=== PATIENT | male | born 1940 | race Caucasian/White ===

== ENCOUNTER 2019-10-05 18:17 | Inpatient (IN) | payer MEDICARE, OTHER ==
[2019-10-05] MEDS ORDERED: Sodium Chloride 0.9% 1000 ML 1,000 ML IV STA (18:46)
[2019-10-05 19:16] LABS: Absolute Neutrophil Ct (ANC) 4.38 (1.4-6.9); BASOPHIL % 0.4 % (0.0-0.4); Basophil (Absolute #) 0.03 (0-0.4); Eosinophil % 6.8 % (0.00-5.0); Eosinophil (Absolute #) 0.54 (0-0.5); Hematocrit 39.3 % (42-50); Hemoglobin 12.9 gm/dl (12.5-18.0); Lymphocyte (Absolute #) 2.29 (1.0-4.6); Mean Cell Volume 97.3 fl (78-100); Mean Corpuscular Hemoglobin 31.9 pg (26-32); Mean Corpuscular Hgb Concent. 32.8 g/dl (32-36); Mean Platelet Volume 10.4 fl (7.5-11.0); Monocyte (Absolute #) 0.67 (0.0-1.3); Monocytes % 8.5 % (0.0-12.0); Neutrophil % 55.3 % (36.0-66.0); Platelet Count 178 K/mm3 (150-450); Red Blood Count 4.04 M/mm3 (4.1-5.6); Red Cell Distribution Width 13.7 % (11.5-14.0); White Blood Count 7.9 K/mm3 (4.0-10.5)
[2019-10-05] MEDS ORDERED: Sodium Chloride 0.9% 1000 ML 1,000 ML ONE (19:43)
[2019-10-05 19:45] LABS: ALBUMIN 4.4 g/dL (3.5-5.0); ANION GAP 13.6 MEQ/L (5-15); BILIRUBIN,TOTAL 0.6 mg/dL (0.2-1.3); Calcium 8.8 mg/dL (8.4-10.2); Creatinine 1 1.27 mg/dL (0.66-1.25); MAGNESIUM 2.2 mg/dL (1.6-2.3); Potassium 3.5 mmol/L (3.5-5.1); Total Protein 7.4 g/dL (6.3-8.2)
[2019-10-05 19:50] LABS: Erythrocyte Sedimentation Rate 11 mm/hr (0-15)
[2019-10-05 20:42] LABS: Appearance CLEAR (CLEAR); Bilirubin NEGATIVE (NEGATIVE); Blood NEGATIVE Ery/ul (0-5); Glucose NEGATIVE (NEGATIVE); Ketones NEGATIVE (NEGATIVE); Leukocyte Esterase NEGATIVE (NEGATIVE); Mucus SLIGHT /HPF (NEGATIVE); Nitrite NEGATIVE (NEGATIVE); Protein,Urine Dip NEGATIVE (Negative); RBC 0-2 /HPF (0-2); Specific Gravity 1.012 (1.005-1.025); Urobilinogen NEGATIVE mg/dL (0-1); WBC 0-2 /HPF (0-5)
--- NOTE | 2019-10-05 20:52 | ERPHSYRPT ---
- History of Present Illness Time Seen by Provider: 10/05/19 18:35 Source: patient, family Exam Limitations: clinical condition Patient Subjective Stated Complaint: pt here for frequent falls, he has fallen 4 times in last 48 hours,he lives at home with hes Triage Nursing Assessment: pt arrived per wc , alert, but confused to details, pt knows name,birthdate, and place, he has hx of dementia, pt has pain to bothe arms, has bruising to bothe arms, brusiing with swelling to right side of face, bruising to bottom, pt has audible wheezes, resp easy, skin w/d/p Physician History: Is an 79-year-old white male who presents with worsening of his dementia acutely and falling 4 times in the last 48 hours. He was recently at [facility] and worked up for chest pain which was primarily nocturnal and was diagnosed with reflux. They also noticed no increase in the severity of his dimension acutely. He does have some kidney disease chronically recently had some of his Bumex stopped. Been wheezing and had a bad cough. He has had no fever chills or sweats. Occurred: just prior to arrival Reason for Fall: unknown Injuries/Pain Location: head, face, upper extremity, chest Loss of Consciousness: no loss of consciousness Quality: aching Severity of Pain-Max: moderate Severity of Pain-Current: moderate Modifying Factors: Improves With: nothing Associated Symptoms (Fall): chest pain (To palpation), extremity injury ( Redness both shoulders) Hx Tetanus, Diphtheria Vaccination/Date Given: No (unsure) Hx Influenza Vaccination/Date Given: Yes Hx Pneumococcal Vaccination/Date Given: Yes Immunizations Up to Date: Yes Travel Risk - International Travel Have you traveled outside of the country in past 3 weeks: No Have you or anyone close to you been diagnosed with or: No Do your reside in a community with a known COVID-19 case?: Yes If Yes where:: [place] - Coronavirus Screening Has patient experienced Coronavirus symptoms: No - Review of Systems All Other Systems: Unable due to dementia - Past Medical History Pertinent Past Medical History: Yes Cardiac History: Coronary Artery Disease, High Cholesterol, Hypertension Respiratory History: Emphysema - Past Surgical History Past Surgical History: Yes Cardiac: CABG, Cardiac Catheterization, Cardiac Stent Musculoskeletal: Orthopedic Surgery Other Surgical History: hip replaced ,back surg - Social History Smoking Status: Former smoker Exposure to second hand smoke: No Drug Use: none Patient Lives Alone: No - Nursing Vital Signs Nursing Vital Signs: Initial Vital Signs Temperature 97.6 F 10/05/19 18:26 Pulse Rate 57 L 10/05/19 18:26 Respiratory Rate 18 10/05/19 18:26 Blood Pressure 160/92 10/05/19 18:26 O2 Sat by Pulse Oximetry 95 10/05/19 18:26 Pain Scale Pain Intensity 5 - Maria Luisa Coma Score Best Eye Response (Maria Luisa): (4) open spontaneously Best Verbal Response (Maria Luisa): (5) oriented Best Motor Response (Maria Luisa): (6) obeys commands Aroda Total: 15 - Physical Exam General Appearance: mild distress, alert Head Injury: ecchymosis (Ecchymoses and swelling of the right periorbital area) Eye Exam: PERRL/EOMI ENT Exam: airway nml Neck Exam: normal inspection, No tenderness Respiratory/Chest Exam: normal breath sounds, No chest tenderness, No respiratory distress Cardiovascular Exam: normal heart sounds, regular rate/rhythm Gastrointestinal Exam: soft, No tenderness, No distention, No guarding, No ecchymosis Back Exam: normal inspection, No vertebral tenderness Extremity Exam: normal inspection, normal range of motion, pelvis stable, No deformities Neurologic Exam: alert, oriented x 3, cooperative, sensation nml, confusion, No motor deficits Skin Exam: normal color, warm, dry SpO2 Interpretation: normal SpO2: 95 O2 Delivery: Room Air - Course Nursing assessment & vital signs reviewed: Yes EKG Interpreted by Me: RATE (55), Sinus Rhythm, LAFB, Right Bundle Branch Block Rhythm Strip: 1st degree block Ordered Tests: Active Orders 24 hr Category Date Time Status Car Stereo Installer STAT Care 10/05/19 18:48 Active EKG-ER Only STAT Care 10/05/19 18:46 Active IV Insertion STAT Care 10/05/19 18:46 Active CERVICAL SPINE WO CONTRAST [CT] Stat Exams 10/05/19 18:44 Taken CHEST WITHOUT CONTRAST [CT] Stat Exams 10/05/19 18:46 Taken FACIAL BONES WO CONTRAST [CT] Stat Exams 10/05/19 18:44 Taken HEAD WITHOUT CONTRAST [CT] Stat Exams 10/05/19 18:45 Taken AMYLASE Stat Lab 10/05/19 18:40 Completed BLOOD CULTURE Stat Lab 10/05/19 19:12 Received CBC W DIFF Stat Lab 10/05/19 18:40 Completed CMP Stat Lab 10/05/19 18:40 Completed Erythrocyte Sedimentation Rate Stat Lab 10/05/19 18:40 Completed Ferritin Stat Lab 10/05/19 18:40 Completed LDH-LACTATE DEHYDROGENASE Stat Lab 10/05/19 18:40 Completed LIPASE Stat Lab 10/05/19 18:40 Completed Lactic Acid Stat Lab 10/05/19 18:55 Completed MAGNESIUM Stat Lab 10/05/19 18:40 Completed NT PRO BNP Stat Lab 10/05/19 18:40 Completed TROPONIN Q3H Lab 10/05/19 18:40 Completed TROPONIN Q3H Lab 10/05/19 22:00 Ordered TROPONIN Q3H Lab 10/06/19 01:00 Ordered TROPONIN Q3H Lab 10/06/19 04:00 Ordered TROPONIN Q3H Lab 10/06/19 07:00 Ordered UA W/RFX UR CULTURE Stat Lab 10/05/19 20:32 Completed Medication Summary Discontinued Medications Generic Name Dose Route Start Last Admin Trade Name Freq PRN Reason Stop Dose Admin Sodium Chloride 1,000 mls @ 999 mls/hr 10/05/19 18:46 10/05/19 19:48 Sodium Chloride 0.9% 1000 Ml IV 10/05/19 19:46 999 mls/hr .Q1H1M STA Administration Sodium Chloride Confirm 10/05/19 19:43 Sodium Chloride 0.9% 1000 Ml Administered 10/05/19 19:44 Dose 1,000 mls @ ud .ROUTE .STK-MED ONE Lab/Rad Data: Laboratory Result Diagrams 10/05/19 18:40 10/05/19 18:40 Laboratory Results 10/05/19 10/05/19 10/05/19 Range/Units 20:32 18:55 18:40 WBC (4.0-10.5) K/mm3 RBC (4.1-5.6) M/mm3 Hgb (12.5-18.0) gm/dl Hct (42-50) % MCV (78-100) fl MCH (26-32) pg MCHC (32-36) g/dl RDW (11.5-14.0) % Plt Count (150-450) K/mm3 MPV (7.5-11.0) fl Gran % (36.0-66.0) % Eos # (Auto) (0-0.5) Absolute Lymphs (auto) (1.0-4.6) Absolute Monos (auto) (0.0-1.3) Lymphocytes % (24.0-44.0) % Monocytes % (0.0-12.0) % Eosinophils % (0.00-5.0) % Basophils % (0.0-0.4) % Absolute Granulocytes (1.4-6.9) Basophils # (0-0.4) ESR (0-15) mm/hr Sodium (137-145) mmol/L Potassium (3.5-5.1) mmol/L Chloride (98-107) mmol/L Carbon Dioxide (22-30) mmol/L Anion Gap (5-15) MEQ/L BUN (9-20) mg/dL Creatinine (0.66-1.25) mg/dL Estimated GFR ML/MIN Glucose (74-106) mg/dL Lactic Acid 1.5 (0.4-2.0) Calcium (8.4-10.2) mg/dL Magnesium (1.6-2.3) mg/dL Ferritin 35.7 (17.9-464) ng/mL Total Bilirubin (0.2-1.3) mg/dL AST (17-59) U/L ALT (0-50) U/L Alkaline Phosphatase (38-126) U/L Lactate Dehydrogenase (120-246) U/L Troponin I (0.000-0.034) ng/mL NT-Pro-B Natriuret Pep (0-1800) pg/mL Serum Total Protein (6.3-8.2) g/dL Albumin (3.5-5.0) g/dL Amylase (30-110) U/L Lipase (23-300) U/L Urine Color YELLOW (YELLOW) Urine Appearance CLEAR (CLEAR) Urine pH 6.0 (5-6) Ur Specific Standard 1.012 (1.005-1.025) Urine Protein NEGATIVE (Negative) Urine Ketones NEGATIVE (NEGATIVE) Urine Blood NEGATIVE (0-5) Terrell/ul Urine Nitrite NEGATIVE (NEGATIVE) Urine Bilirubin NEGATIVE (NEGATIVE) Urine Urobilinogen NEGATIVE (0-1) mg/dL Ur Leukocyte Esterase NEGATIVE (NEGATIVE) Urine WBC (Auto) 0-2 (0-5) /HPF Urine RBC (Auto) 0-2 (0-2) /HPF U Epithel Cells (Auto) NONE (FEW) /HPF Urine Bacteria (Auto) NONE (NEGATIVE) /HPF Urine Mucus (Auto) SLIGHT (NEGATIVE) /HPF Urine Culture Reflexed NO (NO) Urine Glucose NEGATIVE (NEGATIVE) mg/dL 10/05/19 10/05/19 10/05/19 Range/Units 18:40 18:40 18:40 WBC 7.9 (4.0-10.5) K/mm3 RBC 4.04 L (4.1-5.6) M/mm3 Hgb 12.9 (12.5-18.0) gm/dl Hct 39.3 L (42-50) % MCV 97.3 (78-100) fl MCH 31.9 (26-32) pg MCHC 32.8 (32-36) g/dl RDW 13.7 (11.5-14.0) % Plt Count 178 (150-450) K/mm3 MPV 10.4 (7.5-11.0) fl Gran % 55.3 (36.0-66.0) % Eos # (Auto) 0.54 H (0-0.5) Absolute Lymphs (auto) 2.29 (1.0-4.6) Absolute Monos (auto) 0.67 (0.0-1.3) Lymphocytes % 29.0 (24.0-44.0) % Monocytes % 8.5 (0.0-12.0) % Eosinophils % 6.8 H (0.00-5.0) % Basophils % 0.4 (0.0-0.4) % Absolute Granulocytes 4.38 (1.4-6.9) Basophils # 0.03 (0-0.4) ESR 11 (0-15) mm/hr Sodium 140 (137-145) mmol/L Potassium 3.5 (3.5-5.1) mmol/L Chloride 101 (98-107) mmol/L Carbon Dioxide 30 (22-30) mmol/L Anion Gap 13.6 (5-15) MEQ/L BUN 14 (9-20) mg/dL Creatinine 1.27 H (0.66-1.25) mg/dL Estimated GFR 57.9 ML/MIN Glucose 122 H (74-106) mg/dL Lactic Acid (0.4-2.0) Calcium 8.8 (8.4-10.2) mg/dL Magnesium 2.2 (1.6-2.3) mg/dL Ferritin (17.9-464) ng/mL Total Bilirubin 0.60 (0.2-1.3) mg/dL AST 29 (17-59) U/L ALT 25 (0-50) U/L Alkaline Phosphatase 63 (38-126) U/L Lactate Dehydrogenase 176 (120-246) U/L Troponin I 0.021 (0.000-0.034) ng/mL NT-Pro-B Natriuret Pep 2500 H (0-1800) pg/mL Serum Total Protein 7.4 (6.3-8.2) g/dL Albumin 4.4 (3.5-5.0) g/dL Amylase 75 (30-110) U/L Lipase 26 (23-300) U/L Urine Color (YELLOW) Urine Appearance (CLEAR) Urine pH (5-6) Ur Specific Standard (1.005-1.025) Urine Protein (Negative) Urine Ketones (NEGATIVE) Urine Blood (0-5) Terrell/ul Urine Nitrite (NEGATIVE) Urine Bilirubin (NEGATIVE) Urine Urobilinogen (0-1) mg/dL Ur Leukocyte Esterase (NEGATIVE) Urine WBC (Auto) (0-5) /HPF Urine RBC (Auto) (0-2) /HPF U Epithel Cells (Auto) (FEW) /HPF Urine Bacteria (Auto) (NEGATIVE) /HPF Urine Mucus (Auto) (NEGATIVE) /HPF Urine Culture Reflexed (NO) Urine Glucose (NEGATIVE) mg/dL - Progress Progress: unchanged Discussed with Dr.: Lee - Departure Departure Disposition: Observation Clinical Impression: Falls frequently Condition: Fair Critical Care Time: No Referrals: RIDGE MEDINA DO [Primary Care Provider] - Instructions: Preventing Falls
[2019-10-05] MEDS ORDERED: Sodium Chloride 0.9% 1000 ML 1,000 ML IV SCH ×2 (21:00→22:15)
--- NOTE | 2019-10-05 22:09 | XRAY ---
Indication: Pain following multiple falls. Multiple contiguous axial images obtained through the head without contrast. Comparison: None Age-appropriate global atrophy and mild/moderate periventricular degenerative micro-ischemia. Right frontal lobe demonstrates small focus of encephalomalacia presumed from old infarct. 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 No acute intracranial hemorrhage, abnormal extra-axial fluid collection, or mass effect. Fourth ventricle is midline without hydrocephalus. Bony calvarium intact. Visualized paranasal sinuses and mastoid air cells are clear. CT facial bones and CT cervical spine reported severally. 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 Comment: Preliminary interpretation was made by [facility]. No critical discrepancy.
--- NOTE | 2019-10-05 22:12 | XRAY ---
Indication: Pain following multiple falls. Multiple contiguous axial images obtained through the cervical spine. Sagittal and coronal reformatted images obtained. Comparison: None Axial images negative for acute fracture, suspicious for lesions, or spinal canal stenosis. Mild/moderate C3-C6 degenerative endplate spurring. Also moderate left C4-C5 degenerative facet hypertrophy. Sagittal and coronal reformatted images demonstrates normal alignment. C3-C4 and C5-C6 disc space loss. No acute compression fracture, subluxation, or jumped facet. Normal appearing craniocervical junction. Visualized noncontrasted soft tissues demonstrates moderate scattered carotid calcifications bilaterally. CT facial bones and CT head reported severally. Impression: 1. Negative acute fracture/subluxation. 2. Multilevel degenerative changes and scattered bilateral carotid calcifications. Comment: Preliminary interpretation was made by [facility]. No critical discrepancy.
--- NOTE | 2019-10-05 22:18 | XRAY ---
Indication: Right facial pain, swelling, and bruising following multiple falls. Multiple contiguous axial images obtained through the facial bones. Sagittal and coronal reformatted images obtained. Comparison: None Multiple bilateral dental amalgams produces beam artifact limiting these levels. Mild right facial subcutaneous hematoma. No acute fracture or suspicious bony lesions. Orbits including roof, aguilera, and floors are intact. Paranasal sinuses and nasal passages are clear. Mild nasal septal deviation to the right. CT cervical spine and CT head reported separately. Impression: 1. Right facial subcutaneous hematoma. 2. Negative acute fracture. 3. Incidental mild nasal septal deviation. Comment: Preliminary interpretation was made by [facility]. No critical discrepancy.
--- NOTE | 2019-10-05 22:24 | XRAY ---
Indication: Left chest pain following multiple falls. Multiple contiguous axial images obtained through the chest without contrast as ordered. Comparison: None Study slightly degraded by respiration artifact throughout. Lungs are inflated with minimal bibasilar atelectasis/scarring. No suspicious pulmonary mass, infiltrate, or effusion. Heart is enlarged and demonstrates previous CABG surgery. Aorta is moderately arteriosclerotic without aneurysm. No pathologic mediastinal lymphadenopathy. Bony thorax demonstrates osteopenia, flowing osteophytes throughout the spine, L1 kyphoplasty, and old left 6/7 rib fractures. Limited upper abdomen demonstrates tiny gallstones in the neck of the gallbladder. Impression: 1. Respiration artifact. 2. Cardiomegaly, chronic bony findings, and tiny gallstones. 3. Remaining CT chest without contrast exam is negative. Comment: Preliminary interpretation was made by [facility]. No critical discrepancy.
[2019-10-05] MEDS ORDERED: Lopressor 50 MG PO ONE (23:50)
[2019-10-05] MEDS ORDERED: Requip 0.5 MG PO ONE (23:51)
[2019-10-05] MEDS ORDERED: HYTRIN 1 MG PO ONE (23:52)
[2019-10-05] MEDS: Seroquel 25 MG PO SCH (23:59)
[2019-10-06] MEDS: NORCO 5/325 MG PO PRN ×3 (01:44→16:10)
[2019-10-06 06:22] LABS: ANION GAP 9.4 MEQ/L (5-15); Absolute Neutrophil Ct (ANC) 5.29 (1.4-6.9); BASOPHIL % 0.1 % (0.0-0.4); BLOOD UREA NITROGEN 14 mg/dL (9-20); Basophil (Absolute #) 0.01 (0-0.4); CHLORIDE 103 mmol/L (98-107); Calcium 8.6 mg/dL (8.4-10.2); Carbon Dioxide 31 mmol/L (22-30); Creatinine 1 1.19 mg/dL (0.66-1.25); Eosinophil % 5.2 % (0.00-5.0); Eosinophil (Absolute #) 0.47 (0-0.5); Glucose 120 mg/dL (74-106); Hematocrit 33.8 % (42-50); Lymphocyte (Absolute #) 2.35 (1.0-4.6); Lymphocytes % 26.1 % (24.0-44.0); Mean Cell Volume 98.5 fl (78-100); Mean Corpuscular Hemoglobin 32.1 pg (26-32); Mean Corpuscular Hgb Concent. 32.5 g/dl (32-36); Mean Platelet Volume 10.5 fl (7.5-11.0); Monocyte (Absolute #) 0.89 (0.0-1.3); Monocytes % 9.9 % (0.0-12.0); Neutrophil % 58.7 % (36.0-66.0); Platelet Count 161 K/mm3 (150-450); Potassium 3.5 mmol/L (3.5-5.1); Red Blood Count 3.43 M/mm3 (4.1-5.6); Red Cell Distribution Width 13.8 % (11.5-14.0); SODIUM 139 mmol/L (137-145)
[2019-10-06 10:12] LABS: INR 1.08 (0.8-3.0); PROTIME 12.2 SECONDS (8.83-12.87)
--- NOTE | 2019-10-06 10:40 | PCM.HP ---
History of Present Illness - Chief Complaint Chief Complaint: Falls/dementia/CHF History of Present Illness: is a 79 year old male patient of Dr Harman who presented for evaluation due to 4 falls at home in the 2 days prior to arrival, he has reportedly been increasingly confused as well. He is oriented to self and year but not place. He reports he is [place] [facility] now in a business and the month is August. He does admit to falls and states his arm and left on the left are sore from falling, he has obvious bruising present from the falls. Apparently he lives with his at home. - Review of Systems Constitutional: Weakness, No Fever, No Chills Respiratory: No Cough, No Short Of Breath Cardiac: No Chest Pain, No Edema, No Syncope Abdominal/Gastrointestinal: No Abdominal Pain, No Nausea, No Vomiting, No Diarrhea Musculoskeletal: Fall, Injury Skin: No Rash Psychological: No Alcohol Abuse, No Drug Abuse All Other Systems: Reviewed and Negative Medications & Allergies Home Medications: Home Medication List Albuterol Sulfate [Proair Hfa] 2 inh PO TID 10/05/19 [History Confirmed 10/05/19 ] Aspirin [Adult Aspirin Regimen] 81 mg PO DAILY 10/05/19 [History Confirmed 10/04] Cetirizine HCl [Zyrtec] 10 mg PO DAILY 10/05/19 [History Confirmed 10/05/19] Clopidogrel Bisulfate 75 mg [PLAVIX 75 MG Tablet] 75 mg PO DAILY 10/05/19 [History Confirmed 10/05/19] Dapsone 25 mg PO DAILY 10/05/19 [History Confirmed 10/05/19] Ezetimibe/Simvastatin [Vytorin 10-20 mg Tablet] 1 tab PO QHS 10/05/19 [History Confirmed 10/05/19] Isosorbide Mononitrate [Isosorbide Mononitrate ER] 60 mg PO DAILY 10/05/19 [ History Confirmed 10/05/19] Metoprolol Tartrate 50 mg [Lopressor 50 MG] 50 mg PO BID 10/05/19 [ History Confirmed 10/05/19] Nitroglycerin 0.4 mg (Ed) [Nitrostat 0.4 MG (ED)] 0.4 mg SL Q5MIN PRN MR X 3 PRN 10/05/19 [History Confirmed 10/05/19] Austin-3 Fatty Acids/Fish Oil [Fish Oil 1,000 mg Capsule] 1 cap PO BID 10/05/19 [ History Confirmed 10/05/19] Omeprazole 40 mg PO DAILY 10/05/19 [History Confirmed 10/05/19] Ropinirole HCl 0.25 mg PO QHS 10/05/19 [History Confirmed 10/05/19] Sucralfate 1000 mg/10 ml [Carafate SUSPENSION 1000 MG/10 ML] 10 ml PO QID 10/05/19 [History Confirmed 10/05/19] Terazosin HCl [Hytrin] 2 mg PO QHS 10/05/19 [History Confirmed 10/05/19] Triamcinolone 0.1% Cream [Kenalog 0.1% Cream 15 gm] 1 gm TOP BID 10/05/19 [History Confirmed 10/05/19] Allergies/Adverse Reactions: Allergies Allergy/AdvReac Type Severity Reaction Status Date / Time No Known Drug Allergies Allergy Verified 10/05/19 20:59 - Past Medical History Past Medical History: Yes Neurological History: Dementia ENT History: No Pertinent History Cardiac History: Coronary Artery Disease, High Cholesterol, Hypertension Respiratory History: Emphysema Endocrine Medical History: No Pertinent History Musculoskelatal History: No Pertinent History GI Medical History: No Pertinent History History: No Pertinent History Pyscho-Social History: No Pertinent History Male Reproductive Disorders: No Pertinent History - Past Surgical History Past Surgical History: Yes Neuro Surgical History: No Pertinent History Cardiac History: CABG, Cardiac Catheterization, Cardiac Stent Respiratory Surgery: No Pertinent History GI Surgical History: No Pertinent History Genitourinary Surgical Hx: No Pertinent History Musculskeletal Surgical Hx: Orthopedic Surgery Male Surgical History: No Pertinent History Other Surgical History: hip replaced ,back surg - Social History Smoking Status: Former smoker Exposure to second hand smoke: No Alcohol: None Drug Use: none - Physical Exam Vital Signs: Vital Signs - 24 hr Temp Pulse Resp BP Pulse Ox 10/06/19 07:21 97.9 F 55 L 16 120/63 92 L 10/06/19 04:00 98.6 F 61 22 152/67 93 L 10/06/19 00:00 98.8 F 80 18 195/90 94 L 10/05/19 22:10 97.9 F 68 18 180/79 94 L 10/05/19 21:59 95 10/05/19 20:53 95 10/05/19 18:26 97.6 F 57 L 18 160/92 95 General Appearance: no apparent distress Neurologic Exam: alert, cooperative, reserve operator II-XII nml as tested, No oriented x 3, No motor deficits, No sensory deficit, No motor weakness, No facial droop, No slurred speech Respiratory Exam: normal breath sounds, lungs clear, No respiratory distress Cardiovascular Exam: regular rate/rhythm, normal heart sounds, normal peripheral pulses Gastrointestinal/Abdomen Exam: soft, normal bowel sounds, No tenderness, No mass Extremity Exam: tenderness (left upper leg, midshaft of femur decreased range of motion due to pain in left hip and midshaft femur to manipulation of leg. no obvious rotation or shortening) Skin Exam: normal color, warm, dry, No rash Wound Assessment: Skin/Wound Assessment Wound/Incision Assessment Start: 10/06/19 00: 15 Text: Status: Active Freq: Q6H Protocol: Document 10/06/19 07:42 SIDNEY (Rec: 10/06/19 07:47 [id number]) Wound/Incision Assessment Left Upper Arm Wound Assessment Shift Assessment Wound Type Skin Tear Wound Stage Non Pressure Wound Dressing Status Dry & Intact Drainage Amount Moderate Drainage Description Sanguineous Drainage Odor None/Absent Primary Dressing Gauze Roll/Wrap Results - Labs Lab/Micro Results: Lab Results-Last 24 Hours 10/05/19 10/05/19 10/05/19 Range/Units 18:40 18:40 18:40 WBC 7.9 (4.0-10.5) K/mm3 RBC 4.04 L (4.1-5.6) M/mm3 Hgb 12.9 (12.5-18.0) gm/dl Hct 39.3 L (42-50) % MCV 97.3 (78-100) fl MCH 31.9 (26-32) pg MCHC 32.8 (32-36) g/dl RDW 13.7 (11.5-14.0) % Plt Count 178 (150-450) K/mm3 MPV 10.4 (7.5-11.0) fl Gran % 55.3 (36.0-66.0) % Eos # (Auto) 0.54 H (0-0.5) Absolute Lymphs (auto) 2.29 (1.0-4.6) Absolute Monos (auto) 0.67 (0.0-1.3) Lymphocytes % 29.0 (24.0-44.0) % Monocytes % 8.5 (0.0-12.0) % Eosinophils % 6.8 H (0.00-5.0) % Basophils % 0.4 (0.0-0.4) % Absolute Granulocytes 4.38 (1.4-6.9) Basophils # 0.03 (0-0.4) ESR 11 (0-15) mm/hr Sodium 140 (137-145) mmol/L Potassium 3.5 (3.5-5.1) mmol/L Chloride 101 (98-107) mmol/L Carbon Dioxide 30 (22-30) mmol/L Anion Gap 13.6 (5-15) MEQ/L BUN 14 (9-20) mg/dL Creatinine 1.27 H (0.66-1.25) mg/dL Estimated GFR 57.9 ML/MIN Glucose 122 H (74-106) mg/dL Lactic Acid (0.4-2.0) Calcium 8.8 (8.4-10.2) mg/dL Magnesium 2.2 (1.6-2.3) mg/dL Ferritin (17.9-464) ng/mL Total Bilirubin 0.60 (0.2-1.3) mg/dL AST 29 (17-59) U/L ALT 25 (0-50) U/L Alkaline Phosphatase 63 (38-126) U/L Lactate Dehydrogenase 176 (120-246) U/L Troponin I 0.021 (0.000-0.034) ng/mL NT-Pro-B Natriuret Pep 2500 H (0-1800) pg/mL Serum Total Protein 7.4 (6.3-8.2) g/dL Albumin 4.4 (3.5-5.0) g/dL Amylase 75 (30-110) U/L Lipase 26 (23-300) U/L Urine Color (YELLOW) Urine Appearance (CLEAR) Urine pH (5-6) Ur Specific Goodman (1.005-1.025) Urine Protein (Negative) Urine Ketones (NEGATIVE) Urine Blood (0-5) Terrell/ul Urine Nitrite (NEGATIVE) Urine Bilirubin (NEGATIVE) Urine Urobilinogen (0-1) mg/dL Ur Leukocyte Esterase (NEGATIVE) Urine WBC (Auto) (0-5) /HPF Urine RBC (Auto) (0-2) /HPF U Epithel Cells (Auto) (FEW) /HPF Urine Bacteria (Auto) (NEGATIVE) /HPF Urine Mucus (Auto) (NEGATIVE) /HPF Urine Culture Reflexed (NO) Urine Glucose (NEGATIVE) mg/dL 10/05/19 10/05/19 10/05/19 Range/Units 18:40 18:55 20:32 WBC (4.0-10.5) K/mm3 RBC (4.1-5.6) M/mm3 Hgb (12.5-18.0) gm/dl Hct (42-50) % MCV (78-100) fl MCH (26-32) pg MCHC (32-36) g/dl RDW (11.5-14.0) % Plt Count (150-450) K/mm3 MPV (7.5-11.0) fl Gran % (36.0-66.0) % Eos # (Auto) (0-0.5) Absolute Lymphs (auto) (1.0-4.6) Absolute Monos (auto) (0.0-1.3) Lymphocytes % (24.0-44.0) % Monocytes % (0.0-12.0) % Eosinophils % (0.00-5.0) % Basophils % (0.0-0.4) % Absolute Granulocytes (1.4-6.9) Basophils # (0-0.4) ESR (0-15) mm/hr Sodium (137-145) mmol/L Potassium (3.5-5.1) mmol/L Chloride (98-107) mmol/L Carbon Dioxide (22-30) mmol/L Anion Gap (5-15) MEQ/L BUN (9-20) mg/dL Creatinine (0.66-1.25) mg/dL Estimated GFR ML/MIN Glucose (74-106) mg/dL Lactic Acid 1.5 (0.4-2.0) Calcium (8.4-10.2) mg/dL Magnesium (1.6-2.3) mg/dL Ferritin 35.7 (17.9-464) ng/mL Total Bilirubin (0.2-1.3) mg/dL AST (17-59) U/L ALT (0-50) U/L Alkaline Phosphatase (38-126) U/L Lactate Dehydrogenase (120-246) U/L Troponin I (0.000-0.034) ng/mL NT-Pro-B Natriuret Pep (0-1800) pg/mL Serum Total Protein (6.3-8.2) g/dL Albumin (3.5-5.0) g/dL Amylase (30-110) U/L Lipase (23-300) U/L Urine Color YELLOW (YELLOW) Urine Appearance CLEAR (CLEAR) Urine pH 6.0 (5-6) Ur Specific Goodman 1.012 (1.005-1.025) Urine Protein NEGATIVE (Negative) Urine Ketones NEGATIVE (NEGATIVE) Urine Blood NEGATIVE (0-5) Terrell/ul Urine Nitrite NEGATIVE (NEGATIVE) Urine Bilirubin NEGATIVE (NEGATIVE) Urine Urobilinogen NEGATIVE (0-1) mg/dL Ur Leukocyte Esterase NEGATIVE (NEGATIVE) Urine WBC (Auto) 0-2 (0-5) /HPF Urine RBC (Auto) 0-2 (0-2) /HPF U Epithel Cells (Auto) NONE (FEW) /HPF Urine Bacteria (Auto) NONE (NEGATIVE) /HPF Urine Mucus (Auto) SLIGHT (NEGATIVE) /HPF Urine Culture Reflexed NO (NO) Urine Glucose NEGATIVE (NEGATIVE) mg/dL 10/05/19 10/06/19 10/06/19 Range/Units 22:15 01:38 05:30 WBC (4.0-10.5) K/mm3 RBC (4.1-5.6) M/mm3 Hgb (12.5-18.0) gm/dl Hct (42-50) % MCV (78-100) fl MCH (26-32) pg MCHC (32-36) g/dl RDW (11.5-14.0) % Plt Count (150-450) K/mm3 MPV (7.5-11.0) fl Gran % (36.0-66.0) % Eos # (Auto) (0-0.5) Absolute Lymphs (auto) (1.0-4.6) Absolute Monos (auto) (0.0-1.3) Lymphocytes % (24.0-44.0) % Monocytes % (0.0-12.0) % Eosinophils % (0.00-5.0) % Basophils % (0.0-0.4) % Absolute Granulocytes (1.4-6.9) Basophils # (0-0.4) ESR (0-15) mm/hr Sodium (137-145) mmol/L Potassium (3.5-5.1) mmol/L Chloride (98-107) mmol/L Carbon Dioxide (22-30) mmol/L Anion Gap (5-15) MEQ/L BUN (9-20) mg/dL Creatinine (0.66-1.25) mg/dL Estimated GFR ML/MIN Glucose (74-106) mg/dL Lactic Acid (0.4-2.0) Calcium (8.4-10.2) mg/dL Magnesium (1.6-2.3) mg/dL Ferritin (17.9-464) ng/mL Total Bilirubin (0.2-1.3) mg/dL AST (17-59) U/L ALT (0-50) U/L Alkaline Phosphatase (38-126) U/L Lactate Dehydrogenase (120-246) U/L Troponin I 0.022 0.017 0.026 (0.000-0.034) ng/mL NT-Pro-B Natriuret Pep (0-1800) pg/mL Serum Total Protein (6.3-8.2) g/dL Albumin (3.5-5.0) g/dL Amylase (30-110) U/L Lipase (23-300) U/L Urine Color (YELLOW) Urine Appearance (CLEAR) Urine pH (5-6) Ur Specific Goodman (1.005-1.025) Urine Protein (Negative) Urine Ketones (NEGATIVE) Urine Blood (0-5) Terrell/ul Urine Nitrite (NEGATIVE) Urine Bilirubin (NEGATIVE) Urine Urobilinogen (0-1) mg/dL Ur Leukocyte Esterase (NEGATIVE) Urine WBC (Auto) (0-5) /HPF Urine RBC (Auto) (0-2) /HPF U Epithel Cells (Auto) (FEW) /HPF Urine Bacteria (Auto) (NEGATIVE) /HPF Urine Mucus (Auto) (NEGATIVE) /HPF Urine Culture Reflexed (NO) Urine Glucose (NEGATIVE) mg/dL 10/06/19 10/06/19 10/06/19 Range/Units 05:30 05:30 05:45 WBC 9.0 (4.0-10.5) K/mm3 RBC 3.43 L (4.1-5.6) M/mm3 Hgb 11.0 L (12.5-18.0) gm/dl Hct 33.8 L (42-50) % MCV 98.5 (78-100) fl MCH 32.1 H (26-32) pg MCHC 32.5 (32-36) g/dl RDW 13.8 (11.5-14.0) % Plt Count 161 (150-450) K/mm3 MPV 10.5 (7.5-11.0) fl Gran % 58.7 (36.0-66.0) % Eos # (Auto) 0.47 (0-0.5) Absolute Lymphs (auto) 2.35 (1.0-4.6) Absolute Monos (auto) 0.89 (0.0-1.3) Lymphocytes % 26.1 (24.0-44.0) % Monocytes % 9.9 (0.0-12.0) % Eosinophils % 5.2 H (0.00-5.0) % Basophils % 0.1 (0.0-0.4) % Absolute Granulocytes 5.29 (1.4-6.9) Basophils # 0.01 (0-0.4) ESR (0-15) mm/hr Sodium 139 (137-145) mmol/L Potassium 3.5 (3.5-5.1) mmol/L Chloride 103 (98-107) mmol/L Carbon Dioxide 31 H (22-30) mmol/L Anion Gap 9.4 (5-15) MEQ/L BUN 14 (9-20) mg/dL Creatinine 1.19 (0.66-1.25) mg/dL Estimated GFR > 60.0 ML/MIN Glucose 120 H (74-106) mg/dL Lactic Acid 0.9 (0.4-2.0) Calcium 8.6 (8.4-10.2) mg/dL Magnesium (1.6-2.3) mg/dL Ferritin (17.9-464) ng/mL Total Bilirubin (0.2-1.3) mg/dL AST (17-59) U/L ALT (0-50) U/L Alkaline Phosphatase (38-126) U/L Lactate Dehydrogenase (120-246) U/L Troponin I (0.000-0.034) ng/mL NT-Pro-B Natriuret Pep (0-1800) pg/mL Serum Total Protein (6.3-8.2) g/dL Albumin (3.5-5.0) g/dL Amylase (30-110) U/L Lipase (23-300) U/L Urine Color (YELLOW) Urine Appearance (CLEAR) Urine pH (5-6) Ur Specific Goodman (1.005-1.025) Urine Protein (Negative) Urine Ketones (NEGATIVE) Urine Blood (0-5) Terrell/ul Urine Nitrite (NEGATIVE) Urine Bilirubin (NEGATIVE) Urine Urobilinogen (0-1) mg/dL Ur Leukocyte Esterase (NEGATIVE) Urine WBC (Auto) (0-5) /HPF Urine RBC (Auto) (0-2) /HPF U Epithel Cells (Auto) (FEW) /HPF Urine Bacteria (Auto) (NEGATIVE) /HPF Urine Mucus (Auto) (NEGATIVE) /HPF Urine Culture Reflexed (NO) Urine Glucose (NEGATIVE) mg/dL - Radiology Impressions Radiology Exams & Impressions: Radiology Procedures Category Date Time Status CERVICAL SPINE WO CONTRAST [CT] Stat Exams 10/05/19 18:44 Completed CHEST WITHOUT CONTRAST [CT] Stat Exams 10/05/19 18:46 Completed FACIAL BONES WO CONTRAST [CT] Stat Exams 10/05/19 18:44 Completed FEMUR (1V) Routine Exams 10/06/19 Ordered HEAD WITHOUT CONTRAST [CT] Stat Exams 10/05/19 18:45 Completed HIP UNI (2V) INCL PEL IF DONE Routine Exams 10/06/19 Ordered MRI BRAIN W/O CONTRAST [MRI] Routine Exams 10/08/19 08:00 Ordered Assessment/Plan (1) Dementia with behavioral disturbance Current Visit: Yes Status: Acute Assessment & Plan: old infarcts on CT, Dr Harman has apparently called and ordered MRI for Tuesday. differential includes Alzheimer dementia, multi-infarct dementia but most likely a mixed picture. will defer to primary regarding placement. Code(s): F03.91 - UNSPECIFIED DEMENTIA WITH BEHAVIORAL DISTURBANCE (2) CVA, old, cognitive deficits Current Visit: Yes Status: Acute Code(s): I69.319 - UNSP SYMPTOMS AND SIGNS W COGN FNCTNS FOL CEREBRAL INFRC (3) Falls frequently Current Visit: Yes Status: Acute Assessment & Plan: check left hip and femur xray due to pain, fall and decreased range of motion Code(s): R29.6 - REPEATED FALLS
[2019-10-06] MEDS ORDERED: VENTOLIN COMMON CANISTER IH PRN (11:23)
[2019-10-06] MEDS ORDERED: Lopressor 50 MG PO SCH ×2 (11:30→19:02)
[2019-10-06] MEDS: Carafate 1 GM PO SCH ×3 (11:34→20:04)
[2019-10-06] MEDS: Protonix 40MG Tablet PO SCH (11:35)
[2019-10-06] MEDS: Imdur 60MG PO SCH (11:35)
[2019-10-06] MEDS: ECOTRIN 81 MG PO SCH (11:35)
[2019-10-06] MEDS: PLAVIX 75 MG Tablet PO SCH (11:35)
[2019-10-06] MEDS ORDERED: Carafate SUSPENSION 1000 MG/10 ML PO SCH (13:00)
[2019-10-06] MEDS ORDERED: Ventolin Hfa MDI IH SCH (15:00)
[2019-10-06] MEDS: Ativan 0.5 MG PO PRN (15:20)
[2019-10-06] MEDS ORDERED: Zetia 10 MG ONE (19:33)
[2019-10-06] MEDS ORDERED: Requip 0.5 MG ONE (19:33)
[2019-10-06] MEDS ORDERED: HYTRIN 1 MG ONE (19:33)
[2019-10-06] MEDS ORDERED: Lopressor 25MG Tab ONE (19:33)
[2019-10-06] MEDS ORDERED: ZOCOR 20MG ONE (19:34)
[2019-10-06] MEDS ORDERED: Haldol 5 MG ONE (19:52)
[2019-10-06] MEDS: Haldol 5 MG IM ONE (20:02)
[2019-10-06] MEDS: Seroquel 25 MG PO SCH (20:06)
[2019-10-06] MEDS: HYTRIN 1 MG PO SCH (20:07)
--- NOTE | 2019-10-06 20:40 | XRAY ---
Indication: Pain following fall. Comparison: None. 2 views of the left hip demonstrates moderate degenerative changes as evidenced by joint space narrowing, sclerosis, and acetabular spurring. Lateral soft tissue swelling. No other bony, articular, or soft tissue abnormalities. Comment: Preliminary interpretation was made by [facility]. No critical discrepancy.
--- NOTE | 2019-10-06 20:42 | XRAY ---
Indication: Pain following fall. Comparison: None. 2 views of the left femur demonstrates moderate hip degenerative changes, lateral soft tissue swelling, tiny patella spurring, and moderate scattered vascular calcifications. No other bony, articular, or soft tissue abnormalities. Comment: Preliminary interpretation was made by [facility]. No critical discrepancy.
[2019-10-06] MEDS: ZOCOR 20MG PO SCH (20:50)
[2019-10-06] MEDS: Zetia 10 MG PO SCH (20:50)
[2019-10-06] MEDS ORDERED: TERAZOSIN HCL 2 MG PO SCH (22:00)
[2019-10-06] MEDS ORDERED: SIMVASTATIN PO SCH (22:00)
[2019-10-06] MEDS ORDERED: Requip 0.5 MG PO SCH (22:00)
[2019-10-06] MEDS ORDERED: EZETIMIBE PO SCH (22:00)
[2019-10-06] MEDS ORDERED: Haldol 5 MG IM ONE (23:52)
[2019-10-07] MEDS: Haldol 5 MG IM ONE (00:03)
[2019-10-07] MEDS: Ativan 0.5 MG PO PRN ×3 (00:22→23:45)
[2019-10-07] MEDS: NORCO 5/325 MG PO PRN ×6 (01:49→23:45)
--- NOTE | 2019-10-07 08:36 | PCM.NOTE ---
Date and Time: 10/07/19833 Subjective Assessment: patient was extremely agitated last night. he is eating breakfast and pleasant this morning. he was initially started on seroquel at hs then added po ativan with no improvement at all, he was combative last everning so was given IM haldol which worked quite well. Objective Exam General Appearance: no apparent distress, alert Skin Exam: ecchymosis, other (face, left arm) Wound Assessment: Skin/Wound Assessment Wound/Incision Assessment Start: 10/06/19 00: 15 Text: Status: Active Freq: Q6H Protocol: Document 10/07/19 08:00 SIDNEY (Rec: 10/07/19 08:28 SIDNEY [id number]) Wound/Incision Assessment Left Upper Arm Wound Assessment Shift Assessment Wound Type Skin Tear Wound Stage Non Pressure Wound Dressing Status Dry & Intact Drainage Amount None Primary Dressing Gauze Pads Secondary Dressing Gauze Roll/Wrap Comment covered with gauze/wrapped with coban Wound Photo Photo Taken No Respiratory Exam: normal breath sounds Cardiovascular Exam: regular rate/rhythm, normal heart sounds Gastrointestinal/Abdomen Exam: soft, No tenderness, No mass OBJECTIVE DATA Vital Signs: Vital Signs - 24 hr Temp Pulse Resp BP Pulse Ox 10/07/19 07:08 76 18 95 10/07/19 00:00 98.0 F 73 20 146/85 95 10/06/19 20:46 57 L 16 96 10/06/19 20:10 97.8 F 57 L 16 97/51 96 10/06/19 15:48 97.7 F 47 L 16 139/63 93 L 10/06/19 12:59 60 18 96 10/06/19 11:30 98.6 F 53 L 18 125/61 93 L Pain Assessment - Last Documented Pain Intensity 4 Pain Scale Used 0-10 Pain Scale Intake and Output: Intake & Output 10/04/19 10/05/19 10/06/19 10/07/19 11:59 11:59 11:59 11:59 Intake Total 720 1312 Output Total 200 Balance 520 1312 Weight 97.3 kg Lab Results: Lab Results-Last 24 Hours 10/06/19 Range/Units 05:30 PT 12.2 (8.83-12.87) SECONDS INR 1.08 (0.8-3.0) Radiology Exams: Radiology Procedures Category Date Time Status CERVICAL SPINE WO CONTRAST [CT] Stat Exams 10/05/19 18:44 Completed CHEST WITHOUT CONTRAST [CT] Stat Exams 10/05/19 18:46 Completed FACIAL BONES WO CONTRAST [CT] Stat Exams 10/05/19 18:44 Completed FEMUR Routine Exams 10/06/19 11:55 Completed HEAD WITHOUT CONTRAST [CT] Stat Exams 10/05/19 18:45 Completed HIP UNI (2V) INCL PEL IF DONE Routine Exams 10/06/19 11:55 Completed MRI BRAIN W/O CONTRAST [MRI] Routine Exams 10/08/19 08:00 Ordered Assessment/Plan (1) Dementia with behavioral disturbance Current Visit: Yes Status: Acute Code(s): F03.91 - UNSPECIFIED DEMENTIA WITH BEHAVIORAL DISTURBANCE (2) CVA, old, cognitive deficits Current Visit: Yes Status: Acute Code(s): I69.319 - UNSP SYMPTOMS AND SIGNS W COGN FNCTNS FOL CEREBRAL INFRC (3) Falls frequently Current Visit: Yes Status: Acute Code(s): R29.6 - REPEATED FALLS
[2019-10-07] MEDS: Carafate 1 GM PO SCH ×4 (08:38→20:26)
[2019-10-07] MEDS: ECOTRIN 81 MG PO SCH (09:11)
[2019-10-07] MEDS: PLAVIX 75 MG Tablet PO SCH (09:11)
[2019-10-07] MEDS: Protonix 40MG Tablet PO SCH (09:11)
[2019-10-07] MEDS: Lopressor 25MG Tab PO SCH ×2 (09:11→20:27)
[2019-10-07] MEDS: Imdur 60MG PO SCH (09:11)
[2019-10-07] MEDS: Haldol 5 MG IM PRN ×4 (12:29→23:46)
[2019-10-07] MEDS ORDERED: Haldol 5 MG IM ONE (17:05)
[2019-10-07] MEDS: Zetia 10 MG PO SCH (20:26)
[2019-10-07] MEDS: HYTRIN 1 MG PO SCH (20:27)
[2019-10-07] MEDS: ZOCOR 20MG PO SCH (20:28)
[2019-10-07] MEDS ORDERED: Haldol 5 MG ONE ×2 (20:32→23:45)
[2019-10-07] MEDS ORDERED: Nitrostat 0.4 MG Tablet SL ONE (22:06)
[2019-10-07] MEDS: Nitrostat 0.4 MG (ED) SL PRN (22:10)
[2019-10-08] MEDS: Carafate 1 GM PO SCH ×4 (07:39→21:07)
[2019-10-08] MEDS: Nitrostat 0.4 MG (ED) SL PRN (07:40)
[2019-10-08] MEDS: Ativan 0.5 MG PO PRN ×3 (08:42→21:46)
[2019-10-08] MEDS: NORCO 5/325 MG PO PRN ×3 (09:30→21:07)
[2019-10-08] MEDS: ECOTRIN 81 MG PO SCH (09:30)
[2019-10-08] MEDS: Protonix 40MG Tablet PO SCH (09:31)
[2019-10-08] MEDS: Lopressor 25MG Tab PO SCH ×2 (09:31→21:07)
[2019-10-08] MEDS: PLAVIX 75 MG Tablet PO SCH (09:31)
[2019-10-08] MEDS: Imdur 60MG PO SCH (09:31)
[2019-10-08] MEDS: Haldol 5 MG IM PRN ×2 (10:33→21:41)
[2019-10-08] MEDS ORDERED: Klor Con 10 MEQ PO ONE (15:02)
[2019-10-08] MEDS: LASIX 20 MG PO SCH (15:45)
--- NOTE | 2019-10-08 15:54 | PCM.NOTE ---
Date and Time: 10/08/19 1542 Patient has had a rather abrupt onset of lower extremity weakness with falling 4 x in 48hours and mental status change from mild memory impairment to loss of orientation to person place and time. He has been awake all night . He has been up in the [employer] with staff keeping him company or else he rocks the chair trying to get up. He calms down and can be distracted with gummy bear snacks and will converse friendly conversation but not oriented. MRI head was attempted twice today but not able to complete patient too aggitated. Haldol was given 1/2 hour prior to MRI. Neurology consult was completed this afternoon. Objective Exam Wound Assessment: Skin/Wound Assessment Wound/Incision Assessment Start: 10/06/19 00: 15 Text: Status: Active Freq: Q6H Protocol: Document 10/08/19 07:48 RDUHNE (Rec: 10/08/19 07:50 RDUHNE [id number]) Wound/Incision Assessment Left Upper Arm Wound Assessment Shift Assessment Wound Type Skin Tear Wound Stage Non Pressure Wound Dressing Status Dry & Intact Drainage Amount None Primary Dressing Non-Adherent Gauze Pads Secondary Dressing Gauze Roll/Wrap Comment Skin tear to left upper arm. Dressing clean, dry, intact. coban added to dressing for stability Wound Photo Photo Taken No OBJECTIVE DATA Vital Signs: Vital Signs - 24 hr Temp Pulse Resp BP Pulse Ox 10/08/19 12:59 81 28 H 94 L 10/08/19 12:00 97.6 F 69 20 166/77 94 L 10/08/19 06:35 98.6 F 61 20 160/72 93 L 10/07/19 23:16 98.5 F 80 18 134/63 95 10/07/19 22:12 88 20 173/89 98 10/07/19 19:51 98.6 F 96 H 20 163/76 97 10/07/19 18:19 70 15 93 L 10/07/19 15:47 97.6 F 62 18 123/56 92 L Pain Assessment - Last Documented Pain Intensity 0 Pain Scale Used 0-10 Pain Scale Intake and Output: Intake & Output 10/06/19 10/07/19 10/08/19 10/09/19 11:59 11:59 11:59 11:59 Intake Total 720 1672 1020 346 Output Total 200 1 Balance 520 1671 1020 346 Weight 97.3 kg Lab Results: Lab Results-Last 24 Hours 10/05/19 Range/Units 18:40 C-Reactive Prot, Quant 6.78 (0.00-10.00) mg/L
[2019-10-08] MEDS: HYTRIN 1 MG PO SCH (21:07)
[2019-10-08] MEDS: ZOCOR 20MG PO SCH (21:08)
[2019-10-08] MEDS: Zetia 10 MG PO SCH (21:08)
[2019-10-09] MEDS: NORCO 5/325 MG PO PRN ×4 (01:19→16:02)
[2019-10-09] MEDS: Ativan 0.5 MG PO PRN (03:48)
[2019-10-09] MEDS ORDERED: PROVENTIL 2.5 MG/3 ML NEB IH PRN (04:07)
[2019-10-09 07:05] LABS: Absolute Neutrophil Ct (ANC) 4.31 (1.4-6.9); BASOPHIL % 0.3 % (0.0-0.4); Basophil (Absolute #) 0.02 (0-0.4); Eosinophil % 5.1 % (0.00-5.0); Eosinophil (Absolute #) 0.35 (0-0.5); Hematocrit 30.2 % (42-50); Hemoglobin 10.2 gm/dl (12.5-18.0); Lymphocyte (Absolute #) 1.64 (1.0-4.6); Lymphocytes % 23.7 % (24.0-44.0); Mean Cell Volume 96.2 fl (78-100); Mean Corpuscular Hemoglobin 32.5 pg (26-32); Mean Corpuscular Hgb Concent. 33.8 g/dl (32-36); Mean Platelet Volume 9.8 fl (7.5-11.0); Monocyte (Absolute #) 0.59 (0.0-1.3); Monocytes % 8.5 % (0.0-12.0); Neutrophil % 62.4 % (36.0-66.0); Platelet Count 187 K/mm3 (150-450); Red Blood Count 3.14 M/mm3 (4.1-5.6); Red Cell Distribution Width 13.4 % (11.5-14.0); White Blood Count 6.9 K/mm3 (4.0-10.5)
[2019-10-09 07:44] LABS: ALBUMIN 3.8 g/dL (3.5-5.0); ALKALINE PHOSPHATASE 58 U/L (38-126); ANION GAP 10.2 MEQ/L (5-15); BLOOD UREA NITROGEN 11 mg/dL (9-20); CHLORIDE 105 mmol/L (98-107); Calcium 8.7 mg/dL (8.4-10.2); Carbon Dioxide 29 mmol/L (22-30); Creatinine 1 1.05 mg/dL (0.66-1.25); Glucose 120 mg/dL (74-106); Potassium 3.5 mmol/L (3.5-5.1); SGOT/AST 36 U/L (17-59); SGPT/ALT 21 U/L (0-50); SODIUM 140 mmol/L (137-145); Total Protein 6.5 g/dL (6.3-8.2)
[2019-10-09] MEDS: ECOTRIN 81 MG PO SCH (07:52)
[2019-10-09] MEDS: Protonix 40MG Tablet PO SCH (07:52)
[2019-10-09] MEDS: PLAVIX 75 MG Tablet PO SCH (07:52)
[2019-10-09] MEDS: Imdur 60MG PO SCH (07:52)
[2019-10-09] MEDS: LASIX 20 MG PO SCH (07:53)
[2019-10-09] MEDS: Carafate 1 GM PO SCH ×3 (07:58→16:02)
[2019-10-09] MEDS: Lopressor 25MG Tab PO SCH (08:00)
--- NOTE | 2019-10-09 08:25 | XRAY ---
Indication: Lower extremity weakness. Degenerative disc disease. Comparison: None 3 views of the lumbar spine demonstrates 5 lumbar segments in normal alignment with osteopenia, mild/moderate multilevel degenerative spondylosis, L1 kyphoplasty, partially visualized right hip arthroplasty, and extensive aortoiliac calcifications. No other bony, articular, or soft tissue abnormalities.
[2019-10-09] MEDS ORDERED: Namenda 5 MG PO SCH (10:00)
[2019-10-09] MEDS: Librium 10 MG PO SCH ×2 (12:20→16:02)
--- NOTE | 2019-10-09 14:39 | PCM.DS ---
Discharge Summary Date of Admission: 10/05/19 22:11 Admitting Physician: RIDGE MEDINA DO Consults: Consults on Case 10/08/19 12:00 Tele-Health Consult ROUTINE Primary Care Provider: RIDGE MEDINA DO Allergies Allergies No Known Drug Allergies Allergy (Verified 10/05/19 20:59) Hospital Summary - Hospital Course Hospital Course: Patient was admitted through ER with acute mental status changes and recurrent falls. He has Hx mild memory impairment ,SLUMS mini mental exam APR 2019 score was 21. Patient has CAD and was seen in [facility] ER twice in the past 2 weeks for chest pain but was neg for acute cardiac work up and negative for Covid. Was also treated for (?)pneumonia with Doxy and repeat CXR was "negative" per [facility]. Neuro consult yesterday was appreciated and EEG was completed today and results pending. Patient remains confused and becomes aggitated only if restrained . Seroquel was not helpful at 50 mg daily for 1st 2 days of admission. Ativan was not heplful for aggitation and combativeness . Haldol was helpful but seemed to make the dementia worse. Librium used today in place of Haldol and patient seems more calm sitting at bedside visiting with the nurse. will be taking him home to stay with daughter and her family. Neurologist advised getting him into a routine and with family ADILIA.Namenda was started at 5 mg and dose will be gradually increased ,monitoring heart rate. Patient also sees Medical Technologist ,stage 3 renal dz but GFR improved since daily Bumex was discontinued. - Vitals & Intake/Output Vital Signs: Vital Signs Temperature 97.6 F 10/09/19 12:00 Pulse Rate 68 10/09/19 12:00 Respiratory Rate 20 10/09/19 12:00 Blood Pressure 169/79 10/09/19 12:00 O2 Sat by Pulse Oximetry 96 10/09/19 12:00 Intake & Output: Intake & Output 10/07/19 10/08/19 10/09/19 10/10/19 11:59 11:59 11:59 11:59 Intake Total 1672 1020 586 50 Output Total 1 Balance 1671 1020 586 50 Weight 97.3 kg - Lab Result Diagrams: 10/09/19 06:35 10/09/19 06:35 Lab Results-Last 24 Hrs: Lab Results-Last 24 Hours 10/09/19 10/09/19 10/09/19 Range/Units 06:35 06:35 06:35 WBC 6.9 (4.0-10.5) K/mm3 RBC 3.14 L (4.1-5.6) M/mm3 Hgb 10.2 L (12.5-18.0) gm/dl Hct 30.2 L (42-50) % MCV 96.2 (78-100) fl MCH 32.5 H (26-32) pg MCHC 33.8 (32-36) g/dl RDW 13.4 (11.5-14.0) % Plt Count 187 (150-450) K/mm3 MPV 9.8 (7.5-11.0) fl Gran % 62.4 (36.0-66.0) % Eos # (Auto) 0.35 (0-0.5) Absolute Lymphs (auto) 1.64 (1.0-4.6) Absolute Monos (auto) 0.59 (0.0-1.3) Lymphocytes % 23.7 L (24.0-44.0) % Monocytes % 8.5 (0.0-12.0) % Eosinophils % 5.1 H (0.00-5.0) % Basophils % 0.3 (0.0-0.4) % Absolute Granulocytes 4.31 (1.4-6.9) Basophils # 0.02 (0-0.4) Sodium 140 (137-145) mmol/L Potassium 3.5 (3.5-5.1) mmol/L Chloride 105 (98-107) mmol/L Carbon Dioxide 29 (22-30) mmol/L Anion Gap 10.2 (5-15) MEQ/L BUN 11 (9-20) mg/dL Creatinine 1.05 (0.66-1.25) mg/dL Estimated GFR > 60.0 ML/MIN Glucose 120 H (74-106) mg/dL Calcium 8.7 (8.4-10.2) mg/dL Total Bilirubin 0.90 (0.2-1.3) mg/dL AST 36 (17-59) U/L ALT 21 (0-50) U/L Alkaline Phosphatase 58 (38-126) U/L Serum Total Protein 6.5 (6.3-8.2) g/dL Albumin 3.8 (3.5-5.0) g/dL Vitamin B12 412 (239-931) pg/mL Micro Results-Entire Visit: Microbiology 10/05/19 19:12 Blood Culture - Preliminary Blood NO GROWTH TO DATE 10/05/19 18:40 Blood Culture - Preliminary Blood NO GROWTH TO DATE - Radiology Exams Ordered Rad Exams-Entire Visit: Radiology Procedures Category Date Time Status LUMBAR LIMITED (2 OR 3 VIEWS) Routine Exams 10/09/19 07:00 Completed - Procedures and Test Procedures and Tests throughout Hospitalization: Therapy Orders & Screens 10/06/19 12:56 Respiratory Therapy Assessment DAILY Comment: Diagnosis: Falls/dementia/CHF 10/09/19 09:48 EEG 41-60 Minutes (Normal) ONCE Comment: Reason For Exam: Diagnosis: TIA VS CVA Discharge Exam General Appearance: no apparent distress Neurologic Exam: alert (oriented to self only), disoriented, agitation (now , was given Librium 1st dose late morning today, no facial droop,no aphasia or slurred speech. Gait is stable walking around in his room with nurse at his side.) Eye Exam: PERRL, EOMI Ears, Nose, Throat Exam: normal ENT inspection Neck Exam: normal inspection Respiratory Exam: normal breath sounds Cardiovascular Exam: regular rate/rhythm, edema (bilateral pedal edema improved sice Lasix 20mg yesterday) Gastrointestinal/Abdomen Exam: soft, normal bowel sounds Extremity Exam: pedal edema (neg homans) Wound Assessment: Skin/Wound Assessment Wound/Incision Assessment Start: 10/06/19 00: 15 Text: Status: Active Freq: Q6H Protocol: Document 10/09/19 13:08 CCA (Rec: 10/09/19 13:10 CCA [id number]) Wound/Incision Assessment Left Upper Arm Wound Assessment Shift Assessment Wound Type Skin Tear Wound Stage Non Pressure Wound Dressing Status Dry & Intact Drainage Amount None Primary Dressing Non-Adherent Gauze Pads Secondary Dressing Gauze Roll/Wrap Comment dressing to skin tear of left elbow changed 10/09/19 ice applied to large hard bruise to left hip/thigh Wound Photo Photo Taken No left elbow abrasion,denuded skin-dressed. Hip contusion ,right facial contusion resolved discoloration polo light yellow green. Final Diagnosis/Problem List - Final Discharge Diagnosis/Problem (1) Dementia with behavioral disturbance Current Visit: Yes Status: Acute Assessment & Plan: started Namenda and Librium and Zyprexa-continue and reeval by phone with tomorrow. Code(s): F03.91 - UNSPECIFIED DEMENTIA WITH BEHAVIORAL DISTURBANCE (2) Falls frequently Current Visit: Yes Status: Resolved Assessment & Plan: stable gait today,close monitoring Code(s): R29.6 - REPEATED FALLS (3) CVA, old, cognitive deficits Current Visit: Yes Status: Chronic Code(s): I69.319 - UNSP SYMPTOMS AND SIGNS W COGN FNCTNS FOL CEREBRAL INFRC (4) CAD (coronary artery disease) Current Visit: Yes Status: Chronic Code(s): I25.10 - ATHSCL HEART DISEASE OF [place] CORONARY ARTERY W/O ANG PCTRS (5) GERD with esophagitis Current Visit: Yes Status: Chronic Code(s): K21.0 - GASTRO-ESOPHAGEAL REFLUX DISEASE WITH ESOPHAGITIS (6) CKD (chronic kidney disease) stage 3, GFR 30-59 ml/min Current Visit: Yes Status: Chronic Code(s): N18.3 - CHRONIC KIDNEY DISEASE, STAGE 3 (MODERATE) (7) CHF (congestive heart failure) Current Visit: Yes Status: Chronic Code(s): I50.9 - HEART FAILURE, UNSPECIFIED - Discharge Disposition: Home, Self-Care Condition: Fair Prescriptions: New Furosemide 20 mg [Lasix 20 mg] 20 mg PO DAILY #30 tablet Chlordiazepoxide HCl 10 mg [Librium 10 MG] 10 mg PO QID capsule Memantine HCl 5 mg [Namenda 5 MG] 5 mg PO BID #60 tablet Continue Triamcinolone 0.1% Cream [Kenalog 0.1% Cream 15 gm] 1 gm TOP BID Albuterol Sulfate [Proair Hfa] 2 inh PO TID Omeprazole 40 mg PO DAILY Sucralfate 1000 mg/10 ml [Carafate SUSPENSION 1000 MG/10 ML] 10 ml PO QID Ropinirole HCl 0.25 mg PO QHS Cetirizine HCl [Zyrtec] 10 mg PO DAILY Aspirin [Adult Aspirin Regimen] 81 mg PO DAILY Clopidogrel Bisulfate 75 mg [PLAVIX 75 MG Tablet] 75 mg PO DAILY Ezetimibe/Simvastatin [Vytorin 10-20 mg Tablet] 1 tab PO QHS Terazosin HCl [Hytrin] 2 mg PO QHS Nitroglycerin 0.4 mg (Ed) [Nitrostat 0.4 MG (ED)] 0.4 mg SL Q5MIN PRN MR X 3 PRN PRN Reason: Chest Pain Metoprolol Tartrate 50 mg [Lopressor 50 MG] 25 mg PO BID Isosorbide Mononitrate [Isosorbide Mononitrate ER] 60 mg PO DAILY [place]-3 Fatty Acids/Fish Oil [Fish Oil 1,000 mg Capsule] 1 cap PO BID Discontinued Dapsone 25 mg PO DAILY Instructions: Preventing Falls in the Older Adult Follow up with: RIDGE MEDINA DO [Primary Care Provider] - 1 Week
[2019-10-09 16:18] VITALS: BP 152/77; PULSE 70; O2SAT 94
== END 2019-10-09 17:55 | disposition home or self-care (01) | DRG 884 ==
LOC: ED 18:17 → MED SURG 21:16 → INTOOBSV 22:11 → OBSVTOIN 22:11
PROVIDERS: ADMIT Family Medicine; ATTEND Family Medicine
DX: F03.91 Unspecified dementia, unspecified severity, with behavioral disturbance (principal); I13.0 Hypertensive heart and chronic kidney disease with heart failure and stage 1 through stage 4 chronic kidney disease, or unspecified chronic kidney disease; S41.112A Laceration without foreign body of left upper arm, initial encounter; R29.6 Repeated falls; N18.3 Chronic kidney disease, stage 3 (moderate); I50.9 Heart failure, unspecified; R45.1 Restlessness and agitation; M51.36 Other intervertebral disc degeneration, lumbar region; I69.319 Unspecified symptoms and signs involving cognitive functions following cerebral infarction; R53.1 Weakness; I25.10 Atherosclerotic heart disease of native coronary artery without angina pectoris; R07.9 Chest pain, unspecified; K21.0 Gastro-esophageal reflux disease with esophagitis; R51 Headache; M79.602 Pain in left arm; M79.601 Pain in right arm; E78.00 Pure hypercholesterolemia, unspecified; Z79.01 Long term (current) use of anticoagulants; Z79.899 Other long term (current) drug therapy
CPT/HCPCS: 36000; 36415; 70450; 70486; 71250; 72100; 72125; 73502; 73552; 80048; 80053; 81001; 82150; 82607; 82728; 83605; 83615; 83690; 83735; 83880; 84425; 84484; 85025; 85610; 85652; 86140; 87040; 93005; 94640; 94760; 95812; 99285; Q3014; J1630; J7609; A9270-GY